=== PATIENT | female | born 1935 | race Caucasian/White ===

== ENCOUNTER 2022-01-19 11:20 | Emergency (ER) | payer MEDICARE, SELFPAY ==
[2022-01-19 12:02] VITALS: BP 172/74; PULSE 80; RESP 15; TEMP 36.8; O2SAT 93; BMI 42.5
--- NOTE | 2022-01-19 12:18 | ED_ITS ---
HPI - Epistaxis General: Chief complaint: Epistaxis Stated complaint: Nose bleed twice today, swollowed alot of blood Time Seen by Provider: 01/19/22 12:10 History of Present Illness: Patient is a 86-year-old female who comes to the ED with a nosebleed. Patient says this morning she woke up at about 4 AM and had a nosebleed. She was able to get it resolved and then another nosebleed occurred this morning. She was able to get it resolved by the time she arrived here in the ED. She is not currently on any blood thinners. She endorses having a lot of nasal and sinus congestion and drainage over the past several days. Denies any head injury or trauma to cause nosebleed. Associated symptoms: Deny fever(s), headache(s) or vomiting Review of Systems Const: Denies: fever(s), chills or fatigue Eyes: Denies: change in vision or eye discomfort ENMT: Reports: epistaxis; Denies: throat pain, odynophagia, nasal discharge or nasal congestion Card: Denies: chest pain, palpitations, edema, swelling of feet/ankles, dyspnea on exertion or orthopnea Resp: Denies: dyspnea, productive cough or non-productive cough GI: Denies: abdominal pain, nausea, vomiting, diarrhea, constipation or hematochezia : Denies: flank pain, dysuria or hematuria Musc: Denies: neck pain, back pain or extremity swelling Skin/Breast: Denies: rash or new lesions Neuro: Denies: headache(s), numbness in extremities or weakness in extremities PFS ED PFSH: Medical History Diabetes Hx of Henderson's palsy Hx of essential hypertension Hyperlipemia Renal insufficiency Surgical History History of repair of congenital cleft palate Hx of cholecystectomy Hx of tonsillectomy Family History Grandfather Diabetes Social History Smoking and tobacco status: never smoked Alcohol intake: never Current occupational status: retired Physical Exam Const: COMMON NORMALS: no acute distress, patient oriented x3 and alert GENERAL APPEARANCE: cooperative and comfortable HENMT: COMMON NORMALS: normocephalic and Normal external nose present HEAD & SCALP: normocephalic NOSE: Normal external nose present, Normal septum present and Epistaxis present on the right (No active bleeding seen) anterior source and dried blood present; no active bleeding MOUTH: Normal oral and palatal mucosa present THROAT: posterior oropharynx normal, uvula midline and other (No active bleeding seen in posterior oropharynx) Neck/C-Spine: COMMON NORMALS: supple GENERAL: Yes normal visual inspection Resp: COMMON NORMALS: normal respiratory effort, No retractions, No use of accessory muscles and clear to auscultation bilaterally AUSCULTATION: clear to auscultation bilaterally Cardio: COMMON NORMALS: regular rate, regular rhythm, S1 normal heart sound present, S2 normal heart sound present, No gallops present (Cardio), No clicks present (Cardio), No murmurs present (Cardio) and Peripheral pulses 2+ throug hout RATE: regular rate RHYTHM: regular rhythm HEART SOUNDS: S1 normal heart sound present and S2 normal heart sound present PERIPHERAL PULSES: Peripheral pulses 2+ throughout GI: COMMON NORMALS: Normal to inspection, nondistended, normoactive bowel sounds present, Soft to palpation, non-tender and no masses PALPATION: Yes Soft to palpation : COMMON NORMALS: Yes no CVA tenderness BLADDER/KIDNEY EXAM: Yes no CVA tenderness Back/Pelvis: COMMON NORMALS: no CVA tenderness Neuro: COMMON NORMALS: patient oriented x3 and moves all extremities SENSORIUM/ORIENTATION: Yes alert Skin: GENERAL SKIN EXAM: dry skin Course Reevaluation(s): Reevaluation #1: Patient had no active bleeding upon arrival here in the ED. Afrin nasal spray was used and then nasal clamp was applied for 15 minutes. Patient still had no more bleeding. She was watched for another 30 minutes here in the ED and no reoccurring bleeding occurred. Patient was stable and ready for discharge home. Time: 13:00 Vital Signs: Vital signs: Vital Signs Temperature 98.3 F 01/19/22 12:02 Pulse Rate 80 01/19/22 12:02 Respiratory Rate 15 01/19/22 12:02 Blood Pressure 172/74 01/19/22 12:02 Pulse Oximetry 93 01/19/22 12:02 MDM - Epistaxis Medical Decision Making Patient is an 86-year-old female that comes to the ED with a nosebleed. Nose bleeding occurred this morning she denies any injury or trauma to face to cause bleeding. She has had a lot of nasal and sinus congestion recently. Patient is not on any blood thinners. Patient had no active bleeding upon arrival here in the ED. Afrin nasal spray was used and then nasal clamp was applied for 15 minutes. Patient still had no more bleeding. She was watched for another 30 minutes here in the ED and no reoccurring bleeding occurred. Patient was stable and ready for discharge home. Discharge Plan Discharge Patient Disposition: Home Clinical Impression: Epistaxis Condition: Stable Prescriptions: New Afrin (oxymetazoline) 0.05 % spray,non-aerosol 2 spray intranasal BID PRN (Reason: nosebleed) 4 Days Qty: 15 0RF No Action metoprolol succinate 50 mg capsule,sprinkle,ER 24hr 50 mg PO DAILY 0RF glipizide [Glucotrol XL] 5 mg tablet extended release 24hr 5 mg PO DAILY 0RF lisinopril 5 mg tablet 5 mg PO DAILY 0RF furosemide [Lasix] 20 mg tablet 20 mg PO QAM 0RF aspirin [Adult Low Dose Aspirin] 81 mg tablet,delayed release (DR/EC) 81 mg PO DAILY 0RF metformin 500 mg tablet 1,000 mg PO BID 0RF Discharge Orders: Discharge ED (Routine); Ordered 01/19/22 Ordered By: Jose Luis Castro Referrals: Amanda Boyce PA [Primary Care Provider] - Davian Ivy DO [Staff Physician] - Discharge Diet: Regular Discharge Activity: Increase activity as tolerated Patient Instructions: Nosebleed (ED) Activity Restrictions/Additional Instructions: Follow-up with medical provider as directed in the next 3 to 5 days for reevaluation. if you have any reoccurring nosebleeds use Afrin nasal spray in both nostrils and then apply a nose clamp for 15 minutes. Remove nose clamp and reassess. If you are still having nosebleed, then reapply clamp for another 15 minutes. If bleeding has not resolved return to ED or urgent care for reevaluation and management. Continue taking home medications as prescribed. Return to the ER or your medical provider if condition worsens. Please read and understand discharge instructions. Thank you for choosing [facility] for your healthcare needs today. Please realize this is an emergency room and that we are providing you with a medical screening exam and this may not be complete and all inclusive of all the testing and or work up that you may need to determine your ailment or severity of your illness. It is very important that you follow up as instructed or that you return to the Emergency Department should you have concerns or if your condition changes or worsens in any way. Coding Level of Care Code ED Hospice Consultant for Yahir Fwd Exam Comprehensive
[2022-01-19] MEDS: oxymetazoline 0.05% Nasal Spray 15 mL 2 SPRAY NOSTRIL-B (12:22)
== END 2022-01-19 13:20 | disposition home or self-care (01) ==
PROVIDERS: Emergency Provider Physician Assistant; PCP Physician Assistant
DX: R04.0 Epistaxis (principal)
CPT/HCPCS: 99283

== ENCOUNTER 2022-01-29 08:50 | Emergency (ER) | payer MEDICARE, SELFPAY ==
[2022-01-29 08:58] VITALS: BP 175/79; PULSE 88; RESP 14; TEMP 36.4; O2SAT 93; BMI 42.5
--- NOTE | 2022-01-29 09:14 | ED_ITS ---
HPI - Epistaxis General: Chief complaint: Epistaxis Stated complaint: nose bleed won't stop Time Seen by Provider: 01/29/22 09:04 History of Present Illness: Patient has had 4 nosebleeds over the last week or 2. Was just seen here couple days ago and received Afrin and nose clip and that worked for a few hours. Patient says been bleeding throughout the night and she cannot keep the nose clip on. She is after the last time at 1800 last night. Associated symptoms: Deny fever(s), headache(s) or vomiting Review of Systems Const: Denies: fever(s), chills or body aches Eyes: Denies: eye discomfort ENMT: Reports: epistaxis; Denies: throat pain Card: Denies: chest pain Resp: Denies: dyspnea GI: Denies: abdominal pain, nausea or vomiting Skin/Breast: Denies: rash Neuro: Denies: headache(s) Psych: Denies: depression or suicidal ideation PFSH ED PFSH: Medical History Diabetes Hx of Henderson's palsy Hx of essential hypertension Hyperlipemia Renal insufficiency Surgical History History of repair of congenital cleft palate Hx of cholecystectomy Hx of tonsillectomy Family History Grandfather Diabetes Social History Smoking and tobacco status: never smoked Alcohol intake: never Current occupational status: retired Physical Exam Const: COMMON NORMALS: no acute distress, patient oriented x3 and alert HENMT: COMMON NORMALS: normocephalic and external ears normal HEAD & SCALP: normocephalic NOSE: Epistaxis present on the right active bleeding, source not visualized and other (nasal tampon placed) EXTERNAL EAR: Yes external ears normal Eye: COMMON NORMALS: EOMs intact bilaterally Neck/C-Spine: COMMON NORMALS: no JVD Resp: COMMON NORMALS: normal respiratory effort and No use of accessory muscles Cardio: COMMON NORMALS: no JVD GI: INSPECTION: Yes normal to inspection Extremity: COMMON NORMALS: normal to inspection and full ROM Neuro: COMMON NORMALS: patient oriented x3 SENSORIUM/ORIENTATION: Yes alert Psych: COMMON NORMALS: mental status grossly normal Skin: COMMON NORMALS: no rashes or lesions noted GENERAL SKIN EXAM: no rashes or lesions noted Course Vital Signs: Vital signs: Vital Signs Temperature 97.6 F 01/29/22 08:58 Pulse Rate 88 01/29/22 08:58 Respiratory Rate 14 01/29/22 08:58 Blood Pressure 175/79 01/29/22 08:58 Pulse Oximetry 93 01/29/22 08:58 [facility] - Epistaxis Medical Decision Making epistaxis, controlled with nasal tampon, sent for [facility] referral Discharge Plan Discharge Condition: Stable Prescriptions: No Action metoprolol succinate 50 mg capsule,sprinkle,ER 24hr 50 mg PO DAILY 0RF glipizide [Glucotrol XL] 5 mg tablet extended release 24hr 5 mg PO DAILY 0RF lisinopril 5 mg tablet 5 mg PO DAILY 0RF furosemide [Lasix] 20 mg tablet 20 mg PO QAM 0RF aspirin [Adult Low Dose Aspirin] 81 mg tablet,delayed release (DR/EC) 81 mg PO DAILY 0RF metformin 500 mg tablet 1,000 mg PO BID 0RF Referrals: Amanda Boyce PA [Primary Care Provider] - Coding Level of Care Code ED Integrated [employer]c Layout Designer for Yahir Root
[2022-01-29] MEDS: oxymetazoline 0.05% Nasal Spray 15 mL 2 SPRAY NOSTRIL-B (09:20)
[2022-01-29 09:28] VITALS: RESP 17
[2022-01-29 09:43] LABS: Basophils # 0.1 10^3/uL (0.0-0.1); Basophils % 0.9 %; Eosinophils # 0.2 10^3/uL (0.0-0.8); Eosinophils % 3.1 %; Hematocrit 37.7 % (37.0-47.0); Hemoglobin 11.9 g/dL (11.5-15.3); Lymphocytes # 0.9 10^3/uL (0.8-4.8); Lymphocytes % 13.9 %; Mean Corpuscular HGB Conc 31.6 g/dL (30.0-36.0); Mean Corpuscular Hemoglobin 29.8 pg (28.0-34.0); Mean Corpuscular Volume 94.3 fl (81-99); Mean Platelet Volume 10.3 fL (7.4-10.4); Monocytes # 0.6 10^3/uL (0.2-0.9); Monocytes % 9.7 %; Neutrophils # 4.59 10^3/uL (1.8-7.7); Neutrophils % 72.1 %; Nucleated Red Blood Cells % 0 %; Platelet Count 275 10^3/cmm (130-400); Red Cell Distribution Width 13.9 % (12.1-15.1); White Blood Count 6.4 10^3/uL (4.0-10.0)
[2022-01-29 10:17] VITALS: BP 144/80; PULSE 93; RESP 18; O2SAT 97
--- NOTE | 2022-02-02 07:44 | DCPLANNER ---
Addendum entered by Asiya Tate 02/09/22 09:40: Patient had a follow up appointment scheduled for 02.02.22 with ENT - patient did attend appointment. Original Note: data architect manager had message to schedule a follow up appointment for patient with ENT. data architect manager sent patients information to the front staff at the [facility] Clinic. Patients information will be printed and reviewed. Clinic will call patient with appointment information. Patient has a follow up appointment scheduled for Wednesday, February 02, 2022 at 1:[address] Felton at ENT. Clinic will call patient with appointment information.
== END 2022-01-29 10:16 | disposition home or self-care (01) ==
PROVIDERS: Emergency Provider Nurse Practitioner Family; PCP Physician Assistant
DX: R04.0 Epistaxis (principal); E11.9 Type 2 diabetes mellitus without complications; Z79.82 Long term (current) use of aspirin; Z79.84 Long term (current) use of oral hypoglycemic drugs
CPT/HCPCS: 30901; 36415; 85025; 99283

== ENCOUNTER → 2022-02-02 12:56 | Outpatient (BNVA) | payer MEDICARE, SELFPAY | PROVIDERS: PCP Physician Assistant; Visit Provider Otolaryngology | DX: R04.0 Epistaxis (principal) | CPT/HCPCS: 99203 ==

== ENCOUNTER 2022-02-07 05:16 | Emergency (ER) | payer MEDICARE, SELFPAY ==
[2022-02-07 05:25] VITALS: BMI 42.5
[2022-02-07 05:28] VITALS: BP 176/75; PULSE 92; RESP 19; O2SAT 94
--- NOTE | 2022-02-07 05:48 | W.ED.EPISTAX ---
HPI - Epistaxis General: Chief complaint: Epistaxis Stated complaint: Nose bleed Time Seen by Provider: 02/07/22 05:24 Source: patient Mode of arrival: ambulatory Limitations: no limitations History of Present Illness: 86-year-old female presents emergency room with complaints of epistaxis. Began around 330 this morning. She had multiple episodes recently and has been scheduled to see ENT has not yet seen them. Had been taking baby aspirin daily but stopped that due to the recurrent epistaxis. She not on any other anticoagulants she has a history of hypertension and diabetes. MD complaint: epistaxis Location: bilateral nostril Onset (ago): hour(s) Duration: constant Context: aspirin use Associated symptoms: Deny fever(s), headache(s), sinus pain, syncope, vomiting or weakness Treatment prior to arrival: nose pinching and head leaned forward Review of Systems Const: Denies: fever(s), chills or body aches ENMT: Denies: sinus pain Card: Denies: syncope Resp: Denies: dyspnea, productive cough or non-productive cough GI: Denies: vomiting : Denies: flank pain, difficulty voiding, dysuria, urinary frequency or urinary urgency Skin/Breast: Denies: rash or pruritus Neuro: Denies: headache(s) PFSH ED PFSH: Medical History Diabetes Hx of Henderson's palsy Hx of essential hypertension Hyperlipemia Renal insufficiency Surgical History History of repair of congenital cleft palate Hx of cholecystectomy Hx of tonsillectomy Family History Grandfather Diabetes Social History Smoking and tobacco status: never smoked Alcohol intake: never Current occupational status: retired Physical Exam Const: COMMON NORMALS: no acute distress GENERAL APPEARANCE: cooperative and comfortable ORIENTATION/CONSCIOUSNESS: Yes awake, Yes oriented to person, Yes oriented to place and Yes oriented to time HENMT: COMMON NORMALS: normocephalic, atraumatic and hearing grossly normal bilaterally HEAD & SCALP: normocephalic and atraumatic NOSE: Normal septum present and Epistaxis present (Mild) bilaterally OTHER: Rectal bleeding from the right nare. Nasal clamp put in place see below. Neck/C-Spine: COMMON NORMALS: no JVD Resp: COMMON NORMALS: normal respiratory effort, No retractions, No use of accessory muscles and clear to auscultation bilaterally AUSCULTATION: clear to auscultation bilaterally Cardio: COMMON NORMALS: no JVD, regular rate, regular rhythm and No murmurs present (Cardio) RATE: regular rate RHYTHM: regular rhythm Extremity: COMMON NORMALS: normal to inspection, capillary refill normal, no clubbing, cyanosis or edema, no calf tenderness and no pedal edema Neuro: SENSORIUM/ORIENTATION: Yes oriented to person, Yes oriented to place and Yes oriented to time Skin: COMMON NORMALS: no rashes or lesions noted GENERAL SKIN EXAM: no rashes or lesions noted Course Vital Signs: Vital signs: Vital Signs Pulse Rate 88 02/07/22 08:29 Respiratory Rate 18 02/07/22 08:29 Blood Pressure 158/99 02/07/22 08:29 Pulse Oximetry 97 02/07/22 08:29 MDM - Epistaxis Medical Decision Making Oxymetazoline applied did have some decrease over there is still a small trickle. Hesitant to place nasal tampon is a be very uncomfortable and is only minimal bleeding at this point called the doctor Dr. Felton's office they will see the patient in the office discharged from here after second application of oxymetazoline and nasal clamp still in place patient directed to Dr. Felton's office leave clamp in place until he sees them. Medical Records I reviewed the patient's medical records. Lab Data I reviewed the patient's lab results. : 02/07/22 05:58 02/07/22 05:58 Laboratory Results WBC 6.8 10^3/uL (4.0-10.0) 02/07/22 05:58 RBC 3.68 10^6/uL (4.1-5.3) L 02/07/22 05:58 Hgb 11.0 g/dL (11.5-15.3) L 02/07/22 05:58 Hct 35.3 % (37.0-47.0) L 02/07/22 05:58 MCV 95.9 fl (81-99) 02/07/22 05:58 MCH 29.9 pg (28.0-34.0) 02/07/22 05:58 MCHC 31.2 g/dL (30.0-36.0) 02/07/22 05:58 RDW 14.1 % (12.1-15.1) 02/07/22 05:58 Plt Count 243 10^3/cmm (130-400) 02/07/22 05:58 MPV 10.2 fL (7.4-10.4) 02/07/22 05:58 Neut % (Auto) 70.8 % 02/07/22 05:58 Lymph % (Auto) 14.3 % 02/07/22 05:58 [place] % (Auto) 9.5 % 02/07/22 05:58 Eos % (Auto) 4.1 % 02/07/22 05:58 Baso % (Auto) 0.7 % 02/07/22 05:58 Neut # (Auto) 4.78 10^3/uL (1.8-7.7) 02/07/22 05:58 Lymph # (Auto) 1.0 10^3/uL (0.8-4.8) 02/07/22 05:58 [place] # (Auto) 0.6 10^3/uL (0.2-0.9) 02/07/22 05:58 Eos # (Auto) 0.3 10^3/uL (0.0-0.8) 02/07/22 05:58 Baso # (Auto) 0.1 10^3/uL (0.0-0.1) 02/07/22 05:58 Nucleated RBC % (auto) 0 % 02/07/22 05:58 Nucleated RBCs # 0.0 /100WBC 02/07/22 05:58 PT 13.50 SECONDS (12.1-14.9) 02/07/22 05:58 INR 1.00 (0.8-1.2) 02/07/22 05:58 APTT 28.1 SECONDS (23.9-36.7) 02/07/22 05:58 Sodium 138 mmol/L (136-145) 02/07/22 05:58 Potassium 4.3 mmol/L (3.5-5.1) 02/07/22 05:58 Chloride 100 mmol/L (98-107) 02/07/22 05:58 Carbon Dioxide 27 mmol/L (22-29) 02/07/22 05:58 Anion Gap 15.3 (5-19) 02/07/22 05:58 BUN 18 mg/dL (8-23) 02/07/22 05:58 Creatinine 1.1 mg/dL (0.5-0.9) H 02/07/22 05:58 GFR Calculation Not Reportable 02/07/22 05:58 Glucose 170 mg/dL (65-115) H 02/07/22 05:58 Calculated Osmolality 292 mOsm/kg (285-295) 02/07/22 05:58 Calcium 8.9 mg/dL (8.5-10.5) 02/07/22 05:58 Discharge Plan Discharge Patient Disposition: Home Clinical Impression: Epistaxis Condition: Stable Prescriptions: No Action metoprolol succinate 50 mg capsule,sprinkle,ER 24hr 50 mg PO DAILY 0RF glipizide [Glucotrol XL] 5 mg tablet extended release 24hr 5 mg PO DAILY 0RF lisinopril 5 mg tablet 5 mg PO DAILY 0RF furosemide [Lasix] 20 mg tablet 20 mg PO QAM 0RF aspirin [Adult Low Dose Aspirin] 81 mg tablet,delayed release (DR/EC) 81 mg PO DAILY 0RF Hold Instructions: Resume on 02/16/22. metformin 500 mg tablet 1,000 mg PO BID 0RF Discharge Orders: Discharge ED (Routine); Ordered 02/07/22 Ordered By: Grey Sandoval Referrals: Amanda Boyce PA [Primary Care Provider] - Patient Instructions: Opioid Safety Activity Restrictions/Additional Instructions: Proceed directly to Dr. Felton's office from the emergency room he will see you this morning in his office. Coding Level of Care Code ED Machine Candle Molder for Yahir Fwd Exam Detailed
[2022-02-07 06:07] LABS: Basophils # 0.1 10^3/uL (0.0-0.1); Basophils % 0.7 %; Eosinophils # 0.3 10^3/uL (0.0-0.8); Eosinophils % 4.1 %; Hematocrit 35.3 % (37.0-47.0); Lymphocytes % 14.3 %; Mean Corpuscular HGB Conc 31.2 g/dL (30.0-36.0); Mean Corpuscular Hemoglobin 29.9 pg (28.0-34.0); Mean Corpuscular Volume 95.9 fl (81-99); Mean Platelet Volume 10.2 fL (7.4-10.4); Monocytes # 0.6 10^3/uL (0.2-0.9); Monocytes % 9.5 %; Neutrophils # 4.78 10^3/uL (1.8-7.7); Neutrophils % 70.8 %; Nucleated Red Blood Cells % 0 %; Platelet Count 243 10^3/cmm (130-400); Red Blood Count 3.68 10^6/uL (4.1-5.3); Red Cell Distribution Width 14.1 % (12.1-15.1); White Blood Count 6.8 10^3/uL (4.0-10.0)
[2022-02-07] MEDS: saline nasal spray 44mL Btl 1 SPRAY NASAL (06:14)
[2022-02-07] MEDS: oxymetazoline 0.05% Nasal Spray 15 mL 2 SPRAY NOSTRIL-B (06:14)
[2022-02-07 06:41] LABS: Anion Gap 15.3 (5-19); Blood Urea Nitrogen 18 mg/dL (8-23); Calcium 8.9 mg/dL (8.5-10.5); Carbon Dioxide 27 mmol/L (22-29); Chloride 100 mmol/L (98-107); Glucose 170 mg/dL (65-115); Osmolality Calculated 292 mOsm/kg (285-295); Potassium 4.3 mmol/L (3.5-5.1); Sodium 138 mmol/L (136-145)
[2022-02-07 06:46] VITALS: BP 148/70; PULSE 75; RESP 18; O2SAT 95
[2022-02-07 06:57] LABS: Partial Thromboplastin Time 28.1 SECONDS (23.9-36.7)
[2022-02-07 08:29] VITALS: BP 158/99; PULSE 88; RESP 18; O2SAT 97
[2022-02-07 09:01] VITALS: BP 159/103; PULSE 77; RESP 18; TEMP 36.7; O2SAT 94
[2022-02-07] MEDS: hyDRALAzine 20 mg/mL INJ 1 mL 10 MG IVP (09:07)
--- NOTE | 2022-02-07 09:30 | PC.NURSE ---
Assisted pt & family member to [facility] for ENT appt. Lft unit via WC.
== END 2022-02-07 09:10 | disposition home or self-care (01) ==
PROVIDERS: Emergency Provider Family Medicine; PCP Physician Assistant
DX: R04.0 Epistaxis (principal); Z79.84 Long term (current) use of oral hypoglycemic drugs; Z79.82 Long term (current) use of aspirin
CPT/HCPCS: 30901; 80048; 85025; 85610; 85730; 96374; 99213; 99283; J0360

== ENCOUNTER → 2022-02-07 09:27 | Outpatient (BNVA) | payer MEDICARE, SELFPAY | PROVIDERS: PCP Physician Assistant; Visit Provider Otolaryngology | DX: R04.0 Epistaxis (principal) | CPT/HCPCS: 30901; 99213 ==

== ENCOUNTER → 2022-02-28 13:24 | Outpatient (BNVA) | payer MEDICARE, SELFPAY | PROVIDERS: PCP Physician Assistant; Visit Provider Otolaryngology | DX: R04.0 Epistaxis (principal) | CPT/HCPCS: 99212 ==

== ENCOUNTER → 2022-04-27 15:08 | Outpatient (BNVA) | payer MEDICARE, SELFPAY | PROVIDERS: PCP Physician Assistant; Visit Provider Podiatrist Foot & Ankle Surgery | DX: I89.0 Lymphedema, not elsewhere classified (principal); E11.42 Type 2 diabetes mellitus with diabetic polyneuropathy; I73.9 Peripheral vascular disease, unspecified; L60.3 Nail dystrophy | CPT/HCPCS: 11721; 29580 ==

== ENCOUNTER → 2022-08-02 14:56 | Outpatient (BNVA) | payer MEDICARE, SELFPAY | PROVIDERS: PCP Physician Assistant; Visit Provider Podiatrist Foot & Ankle Surgery | DX: I89.0 Lymphedema, not elsewhere classified (principal); E11.42 Type 2 diabetes mellitus with diabetic polyneuropathy; I73.9 Peripheral vascular disease, unspecified; L60.3 Nail dystrophy; Z79.84 Long term (current) use of oral hypoglycemic drugs | CPT/HCPCS: 11721 ==